=== PATIENT | male | born 2000 | race Caucasian/White ===

== ENCOUNTER 2023-06-27 18:52 | Emergency (ER) | payer OTHER, SELFPAY ==
--- NOTE | ~2023-06-27 | XR_ITS ---
EXAM: XR ankle LT min 3V DATE: 06/27/2023 19:15 HISTORY: injury/stepped out of truck and landed wrong . COMPARISON: None available. FINDINGS: Normal mineralization. No fracture or dislocation. No lytic or blastic lesion. Joint space s are maintained. No erosion or periosteal change. Soft tissues within normal limits. IMPRESSION: No acute osseous finding in the right ankle . Reviewed, dictated and finalized at location K.
[2023-06-27 19:06] VITALS: BP 145/81; PULSE 80; RESP 16; TEMP 37.2; O2SAT 98
--- NOTE | 2023-06-27 19:17 | ED.LOWEXIN ---
HPI - Extremity Injury (Lower) General Chief Complaint: Extremity Injury, Lower Stated Complaint: Left Ankle Pain Time Seen by Provider: 06/27/23 19:17 Source: patient, RN notes reviewed and old records reviewed Mode of arrival: ambulatory Limitations: no limitations History of Present Illness HPI Narrative: 22-year-old male presents to the [facility] with complaints of left lateral ankle pain Patient states that he jumped out of a truck and rolled his ankle inversely Minor swelling noted, no ecchymosis. Decreased range of motion secondary to pain Related Data Home Medications Medication Instructions Recorded Confirmed paroxetine HCl 20 mg tablet mg PO 06/27/23 Allergies Allergy/AdvReac Type Severity Reaction Status Date / Time amoxicillin Allergy Unknown Hives Verified 06/27/23 19:14 Review of Systems Review of Systems: All systems reviewed & are unremarkable except as noted in HPI and below Constitutional: Constitutional: Reports no additional constitutional complaints Eyes: Eyes: Reports no additional eye complaints ENT: Reports system reviewed and no additional complaints, except as documented Cardiovascular: Cardiovascular: Reports no additional cardiovascular complaints, Denies chest pain and Denies dyspnea Respiratory: Respiratory: Reports no additional respiratory complaints, Denies chest congestion, Denies cough and Denies dyspnea Gastrointestinal: Gastrointestinal: Reports no additional gastrointestinal complaints, Denies abdominal pain, Denies nausea and Denies vomiting Musculoskeletal: Musculoskeletal: Reports as per HPI, Reports arthralgias and Reports joint swelling Integumentary/Breasts: Skin/Breast: Reports system reviewed and no additional complaints, except as docu Neurologic: Reports system reviewed and no additional complaints, except as documented Psychiatric: Psychiatric: Reports no additional psychiatric complaints Allergic/Immunologic: Allergic/Immunologic: Reports no additional allergic/immunologic complaints PMFSH Comments At the time of my signature, I reviewed and agree with the nursing past medical, surgical, social, and family history. There is no relevant family history pertinent to the patient complaint. Exam Const: General: cooperative, healthy appearing, comfortable, no acute distress, well developed, alert and well nourished Nutritional Appearance: well nourished Orientation/consciousness: patient oriented x3 Limitations: no limitations HENMT: Head: normal to inspection Ears: hearing grossly normal bilaterally and external ears normal Face/Nose/Sinus: Normal external nose present, Normal nares present, Normal nasal mucous membranes and turbinates present and normal facial exam Face and sinus: normal facial exam Mouth: Yes lip normal Eyes: General: appearance normal, both eyes and all related structures Alignment and Position: alignment normal Periorbital: periorbital findings normal Pupils: Equal, round and reactive pupils present EOM: EOMs intact bilaterally Neck: Neck: normal visual inspection, full ROM, no lymphadenopathy and no meningeal signs Chest: Chest palpation & inspection: normal inspection of the chest Resp: Effort & Inspection: normal respiratory effort and able to speak in complete sentences Auscultation: clear to auscultation bilaterally, no crackles, no rales, no rhonchi and no wheezes Cardio: Rate: regular rate Rhythm: regular rhythm Back/Spine/Pelvis: Cervical Spine: cervical ROM normal Thoracic/Lumbar Spine: No thoracic spinal tenderness Skin: General skin exam: normal color and no rashes or lesions noted Lesions: no lesions Rashes: no rashes Wounds: no wounds Neuro: General: patient oriented x3, gait normal, tone normal, moves all extremities and no meningeal signs Cranial nerves: Yes Equal, round and reactive pupils present Cognition (Neuro): normal cognition Speech: normal speech Gait exam (Neuro): Normal gait present Extrem:
== END 2023-06-27 19:48 | disposition home or self-care (01) ==
PROVIDERS: Emergency Provider Nurse Practitioner; PCP Internal Medicine
DX: S93.402A Sprain of unspecified ligament of left ankle, initial encounter (principal); X50.9XXA Other and unspecified overexertion or strenuous movements or postures, initial encounter; F41.9 Anxiety disorder, unspecified
CPT/HCPCS: 73610; 99213; G0463

== ENCOUNTER 2025-03-19 17:50 | Emergency (ER) | payer OTHER, SELFPAY ==
--- NOTE | ~2025-03-19 | XR_ITS ---
HISTORY: left rib pain/injury-anterior lower ribs COMPARISON: None TECHNIQUE: 2 views of the left ribs were performed along with a PA view of the chest. FINDINGS: No acute displaced fracture is appreciated. Bone mineralization is age-appropriate. The cardiac mediastinal silhouette is unremarkable. The lungs are clear. IMPRESSION: No acute displaced left-sided rib fracture. The lungs are clear. Reviewed, dictated and finalized at location A.
--- NOTE | 2025-03-19 17:52 | ED_ITS ---
HPI - Chest Pain General Chief Complaint: Unspecified <Mervin Freeman APRN - Last Filed: 03/19/25 18:59> Stated Complaint: left side rib pain <Mervin Freeman APRN - Last Filed: 03/19/25 18:59> Time Seen by Provider: 03/19/25 17:52 <Mervin Freeman APRN - Last Filed: 03/19/25 18:59> Source: patient <Mervin Freeman APRN - Last Filed: 03/19/25 18:59> Mode of arrival: ambulatory <eMrvin Freeman APRN - Last Filed: 03/19/25 18:59> Limitations: no limitations <Mervin Freeman APRN - Last Filed: 03/19/25 18:59> History of Present Illness HPI narrative: Tico is a 24-year-old male patient presenting to the clinic today with complaints of left-sided rib pain. He reports he was excavating his yd in jumped out of the machine and ended up hitting his left chest wall against the pocket of the machine. States he is having pain to the left lower anterior ribs. Does have an abrasion to the lateral posterior left ribs. Is having pain with twisting, coughing, and taking deep breaths. Denies shortness of breath. Denies hitting his head or any loss of consciousness. <Mervin Freeman APRN - Last Filed: 03/19/25 18:59> Related Data Home Medications: Home Medications ?Medication ?Instructions ?Recorded ?Confirmed ?Last Taken ?Type No Home Medications 03/19/25 03/19/25 Unknown History <Mervin Freeman APRN - Last Filed: 03/19/25 18:59> Allergies/Adverse Reactions: Allergies Allergy/AdvReac Type Severity Reaction Status Date / Time amoxicillin Allergy Unknown Hives Verified 03/19/25 18:04 <Mervin Freeman APRN - Last Filed: 03/19/25 18:59> Review of Systems Review of Systems: Pertinent positives per HPI. Patient denies any fever, chills, rash, headache, visual changes, dizziness, cough, runny nose, sore throat, shortness of breath, palpitations, nausea, vomiting, diarrhea, constipation, abdominal pain, or any urinary issues. <Mervin Freeman APRN - Last Filed: 03/19/25 18:59> PMFSH Comments At the time of my signature, I reviewed and agree with the nursing past medical, surgical, social, and family history. There is no relevant family history pertinent to the patient complaint. <Mervin Freeman APRN - Last Filed: 03/19/25 18:59> Exam Narrative: General: Well-developed, well nourished, in no apparent distress Head: Normocephalic, atraumatic. Chest wall: Even rise and fall of the chest wall, abrasion noted to the lateral posterior left ribs, no bruising or swelling, no obvious step-off deformity of the ribs Cardio: Regular rate and rhythm, s1 and s2 normal, no murmur appreciated. Resp: Clear to auscultation bilaterally, no rhonchi, rales, wheezing or rubs. Extremities: No deformity, no edema, no cyanosis, capillary refill less than 2 seconds, peripheral pulses palpable and strong. <Mervin Freeman APRN - Last Filed: 03/19/25 18:59> Course Course Emergency Course: Portions of this record may have been created with voice recognition s oftware. <Mervin Freeman APRN - Last Filed: 03/19/25 18:59> Level of Care: Express Care Visit <Mervin Freeman APRN - Last Filed: 03/19/25 18:59> Vital Signs Vital signs: Vital Signs Temperature 36.6 C 03/19/25 17:58 Pulse Rate 83 03/19/25 17:58 Respiratory Rate 16 03/19/25 17:58 Blood Pressure 124/68 03/19/25 17:58 Pulse Oximetry 100 03/19/25 17:58 Temperature 36.6 C 03/19/25 17:58 Pulse Rate 83 03/19/25 17:58 Respiratory Rate 16 03/19/25 17:58 Blood Pressure 124/68 03/19/25 17:58 Pulse Oximetry 100 03/19/25 17:58 Vital signs reviewed <Mervin Freeman APRN - Last Filed: 03/19/25 18:59> Vital Signs Temperature 36.6 C 03/19/25 17:58 Pulse Rate 83 03/19/25 17:58 Respiratory Rate 16 03/19/25 17:58 Blood Pressure 124/68 03/19/25 17:58 Pulse Oximetry 100 03/19/25 17:58 Temperature 36.6 C 03/19/25 17:58 Pulse Rate 83 03/19/25 17:58 Respiratory Rate 16 03/19/25 17:58 Blood Pressure 124/68 03/19/25 17:58 Pulse Oximetry 100 03/19/25 17:58 <Areli Silverio NP - Last Filed: 03/19/25 18:51> MDM - Chest Pain MDM Narrative Medical decision making narrative: At the time of visit patient is resting comfortably on the exam table. Patient appears to be nontoxic. Patient coming in today for left rib pain after injury, explained to the patient that we do not have x-ray capability in the clinic at this time and offer to send him to another site for imaging. He agrees to transfer. He would like to go to [facility] for imaging. Contacted Areli MELARA at [facility] and report was given for continuity of care. <Mervin Freeman APRN - Last Filed: 03/19/25 18:59> At the time of visit patient is resting comfortably on the exam table. Patient appears to be nontoxic. Patient coming in today for left rib pain after injury, explained to the patient that we do not have x-ray capability in the clinic at this time and offer to send him to another site for imaging. He agrees to transfer. He would like to go to [facility] for imaging. Contacted Areli MELARA at [facility] and report was given for continuity of care. Assumed care of patient from SARITHA Jeffries. patient sent from [facility] for x-ray of ribs. X-ray of left ribs was negative for fracture. Discussed results with patient. Patient is well-appearing, nontoxic. No respiratory distress. Recommend ibuprofen, Tylenol, ice at home for pain control. <Areli Silverio NP - Last Filed: 03/19/25 18:51> Differential Diagnosis Differential diagnosis: Likely fracture of rib, pneumothorax, atypical chest pain, costochondritis and chest pain <Mervin Freeman APRN - Last Filed: 03/19/25 18:59> Imaging Data My impression: Agree with radiologist <Areli Silverio NP - Last Filed: 03/19/25 18:51> Radiologist's impression: HISTORY: left rib pain/injury-anterior lower ribs COMPARISON: None TECHNIQUE: 2 views of the left ribs were performed along with a PA view of the chest. FINDINGS: No acute displaced fracture is appreciated. Bone mineralization is age-appropriate. The cardiac mediastinal silhouette is unremarkable. The lungs are clear. IMPRESSION: No acute displaced left-sided rib fracture. The lungs are clear. <Areli Silverio NP - Last Filed: 03/19/25 18:51> Discharge Plan Discharge Clinical Impression: Contusion of rib on left side Qualifiers: Encounter type: initial encounter Qualified Code(s): S20.212A - Contusion of left front wall of thorax, initial encounter <Mervin Freeman APRN - Last Filed: 03/19/25 18:59> Patient Disposition: Home <Mervin Freeman APRN - Last Filed: 03/19/25 18:59> Condition: Stable <Mervin Freeman APRN - Last Filed: 03/19/25 18:59> Instructions: Rib Contusion (ED) <Mervin Freeman APRN - Last Filed: 03/19/25 18:59> Additional Instructions: The x-ray of your left ribs was normal. Take ibuprofen or Tylenol every 6-8 hours as needed for pain. Apply ice as needed for pain. Follow-up with your primary care physician as needed. <Mervin Freeman APRN - Last Filed: 03/19/25 18:59> Patient Language: Occitan <Mervin Freeman APRN - Last Filed: 03/19/25 18:59> Prescriptions: No Action No Home Medications <Mervin Freeman APRN - Last Filed: 03/19/25 18:59> Follow-up/Referrals: Vallecillo,Taiwo Barajas MD [Primary Care Provider] - <Mervin Freeman APRN - Last Filed: 03/19/25 18:59> Time of Disposition: 18:49 <Mervin Freeman APRN - Last Filed: 03/19/25 18:59> 18:49 <Areli Silverio NP - Last Filed: 03/19/25 18:51> Quality NIHSS Nursing Documentation ED NIHSS nursing documentation: reviewed/agree <Mervin Freeman APRN - Last Filed: 03/19/25 18:59>
[2025-03-19 17:58] VITALS: BP 124/68; PULSE 83; RESP 16; TEMP 36.6; O2SAT 100
== END 2025-03-19 18:51 | disposition home or self-care (01) ==
PROVIDERS: Emergency Provider Nurse Practitioner Family; PCP Internal Medicine
DX: S20.212A Contusion of left front wall of thorax, initial encounter (principal); V85.5XXA Driver of special construction vehicle injured in nontraffic accident, initial encounter
CPT/HCPCS: 71101; 99213; G0463